=== PATIENT | female | born 2000 | race Caucasian/White ===

== ENCOUNTER 2025-04-10 08:00 | Inpatient (IN) ==
[2025-04-10] MEDS ORDERED: OXYTOCIN 30 UNITS/NSS 30 UNITS/500 ML BAG IV PRN (09:07)
[2025-04-10] MEDS ORDERED: LIDOCAINE 1% LOCAL 20 ML VIAL INFIL PRN (09:07)
[2025-04-10 09:57] LABS: Hematocrit (blood only) 31.9 % (37.0-47.0); Hemoglobin 10.8 g/dl (12.0-16.0); Mean Corpuscular Hemoglobin 26.2 pg (25.0-34.0); Mean Corpuscular Volume 77.4 fL (80.0-100.0); Platelet Count 218 K/uL (130-400); RDW Standard Deviation 37.2 fL (36.4-46.3); Red Blood Count 4.12 M/uL (4.20-5.40); White Blood Count 8.67 K/ul (4.8-10.8)
[2025-04-10] MEDS: LACTATED RINGER'S 1,000 ML IV PRN (10:04)
[2025-04-10] MEDS: OXYTOCIN 30 UNITS/NSS 30 UNITS/500 ML BAG IV PRN ×2 (10:05→20:05)
--- NOTE | 2025-04-10 10:32 | History & Physical Report ---
Date of Service April 10, 2025 Assessment & Plan (1) Encounter for supervision of normal in multigravida: Plan: IUP at 39+ weeks for IOL because of suspected cholestasis pitocin per L&D protocol epidural if requested anticipate vaginal Admission and Anticipated Discharge Date Admission Date: April 10, 2025 History of Present Illness Primary Care Provider: JACKI Stark Patient is a 24 yo female who presents for IOL at 39 3/7 weeks for suspected cholestasis. no ctns yet but did have bloody show prior to arriving in L&D this morning. baby has been active. testing has been reassuring. GBS is negative. blood type-O positive. Allergies Allergy/AdvReac Type Severity Reaction Status Date / Time amoxicillin Allergy rash Verified 04/10/25 08:31 Penicillins Allergy Rash Verified 04/10/25 08:31 shellfish derived Allergy Swelling Verified 04/10/25 08:33 of the Eye Sulfa (Sulfonamide Allergy Anaphylaxis Verified 04/10/25 08:31 Antibiotics) Home Medications Medication Instructions Recorded Confirmed Type docosahexaenoic acid 200 mg 1 mg PO DAILY 08/23/24 04/10/25 History capsule ( DHA) breast pump #1 ea 02/19/25 04/09/25 Rx sertraline 25 mg tablet 25 mg PO DAILY #30 tabs 03/19/25 04/10/25 Rx Patient History Medical History (Updated 04/10/25 @ 08:31 by Roxann Castillo, SUZANNE) (spontaneous vaginal delivery) 2020 Gestational hypertension first Cholestasis first Varicella vaccination Family history of breast cancer in first degree relative mother dx'd age 42, unknown genetic status Endometriosis Menorrhagia Nabothian cyst Breast mass, left Surgical History S/P wisdom tooth extraction S/P laparoscopy x2 S/P tonsillectomy Family History Mother Breast cancer Skin cancer Grandmother (Maternal) Uterine cancer Sister Spina bifida Denies family history of Ovarian cancer Prostate cancer Colorectal cancer Social History Smoking Status: Never smoker Do You Dip or Chew Tobacco: No; Hx Alcohol Use: No Hx Substance Use: No Preferred Language: Romanian Communication Ability: Effective 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 Required: No Beliefs That Will Affect Care: None marital status: marital status details: Rufus Gilmore (26) [phone] Current Living Situation: Spouse and Family Current Living Situation Comment: lives with spouse, son, cats-spouse changing litter current occupational status: employed current occupation: [employer] Other Information That Helps Us Care for You: No Feels Safe at Home: Yes Safety Concerns: Feels Safe At This Time caffeine: Yes Dental Care, Regularly: No Physical Activity Frequency: Does not Exercise Seatbelt Use: always Sunscreen Use: Yes Review of Systems All systems reviewed & are unremarkable except as noted in HPI & below Physical Exam Constitutional: WD/WN, vitals as above Psychiatric: A+Ox3, euthymic affect Genitourinary: OB Exam Abdomen: + vertex (by Bedside ultrasound) and + est imated weight (7-8 pounds); no irregular contractions Manual OB Exam: + cervical dilation 2 cm, + cervical effacement 50% and + station high OB Exam Monitor Tracing: + external FHT monitor used, + external uterine monitor used, + category I and + normal FHT variability Results & Data Vital Signs (Past 12 Hours) Vital Signs Temp Pulse Resp BP 04/10/25 10:00 96 H 119/71 04/10/25 08:12 106 H 125/81 04/10/25 08:06 98.1 F 18 Coding Level of Care Code 32738 INT INP/OBS CARE 1/40MIN Diagnoses Encounter for supervision of normal in multigravida Z34.80
--- NOTE | 2025-04-10 13:30 | Labor Progress Brief Note ---
Date of Service April 10, 2025 Subjective Tolerating contractions Assessment & Plan Admission and Anticipated Discharge Date Admission Date: April 10, 2025 Physical Exam Genitourinary: /-2 AROM Clear Anita Q2 FHT Cat 1 Results & Data Vital Signs (Past 12 Hours) Vital Signs Temp Pulse Resp BP 04/10/25 13:08 98.4 F 04/10/25 12:57 82 116/74 04/10/25 11:53 71 118/78 04/10/25 11:08 98.2 F 04/10/25 11:05 70 115/73 04/10/25 10:00 96 H 119/71 04/10/25 08:12 106 H 125/81 04/10/25 08:06 98.1 F 18 Coding Level of Care Code None
[2025-04-10] MEDS: BUPIVACAINE 0.25% PF 30 ML VIAL ONE (14:52)
[2025-04-10] MEDS: fentANYL 2 MCG/ML BUPIVacaine 0.125%-NSS 100ML BAG ONE (14:52)
[2025-04-10] MEDS: SODIUM CHLORIDE 0.9% PF INJ 10 ML VIAL ONE (14:52)
[2025-04-10] MEDS: LIDOCAINE 2%/EPINEPHRINE 1:200,000 20 ML PF ONE (14:52)
[2025-04-10] MEDS ORDERED: NALOXONE HCL 1 MG in SODIUM CHLORIDE 0.9% 1,000 ML IV PRN (14:58)
[2025-04-10] MEDS ORDERED: NALOXONE HCL 0.4 MG/1 ML VIAL/CARP IV PRN (14:58)
[2025-04-10] MEDS ORDERED: fentANYL 2 MCG/ML BUPIVacaine 0.125%-NSS 100ML BAG EPI PRN (14:58)
[2025-04-10] MEDS ORDERED: PROMETHAZINE 6.25 MG/50.25 ML BAG IV PRN (14:58)
[2025-04-10] MEDS ORDERED: BUPIVACAINE 0.25% PF 30 ML VIAL EPI PRN (14:58)
[2025-04-10] MEDS ORDERED: diphenhydrAMINE 50 MG/ML VIAL IV PRN (14:58)
[2025-04-10] MEDS ORDERED: LIDOCAINE 2% MPF LOCAL 5 ML VIAL EPI PRN (14:58)
[2025-04-10] MEDS ORDERED: SODIUM CHLORIDE 0.9% PF INJ 10 ML VIAL EPI PRN (14:58)
[2025-04-10] MEDS ORDERED: NALBUPHINE HCL INJ 10 MG/ML AMP IV PRN (14:58)
[2025-04-10] MEDS ORDERED: ROPIVACAINE 0.5% PF 5 MG/ML 20 ML VIAL EPI PRN (14:58)
--- NOTE | 2025-04-10 14:58 | Anesthesiology Consultation ---
Date of Service April 10, 2025 Assessment & Plan Chart Review Chart Review: Patient NOT seen in Pre Admission Testing and Acceptable Risk for Labor Epidural Consults Requested none ASA ASA2 Proposed Anesthesia Anesthesia Type: Labor Epidural Risk / Benefits Reviewed With: PT / POA / Parent / Guardian, Accepts Plan and Informed Consent Obtained History Height/Weight Height: 5 ft 6 in Weight: 114.759 kg Allergies Allergy/AdvReac Type Severity Reaction Status Date / Time amoxicillin Allergy rash Verified 04/10/25 08:31 Penicillins Allergy Rash Verified 04/10/25 08:31 shellfish derived Allergy Swelling Verified 04/10/25 08:33 of the Eye Sulfa (Sulfonamide Allergy Anaphylaxis Verified 04/10/25 08:31 Antibiotics) Medications Home Medications Medication Instructions Recorded Confirmed Last Taken docosahexaenoic acid 200 mg 1 mg PO DAILY 08/23/24 04/10/25 04/09/25 08:00 capsule ( DHA) breast pump #1 ea 02/19/25 04/09/25 Unknown sertraline 25 mg tablet 25 mg PO DAILY #30 tabs 03/19/25 04/10/25 Unknown Active Medications Generic Name Dose Route Start Last Admin Trade Name Freq PRN Reason Stop Dose Admin Lactated Ringer's 1,000 mls @ 125 mls/hr 04/10/25 09:07 04/10/25 14:15 Lr IV 04/12/25 09:06 999 mls/hr .Q8H PRN Infusion L&D Protocol Protocol Oxytocin 30 units in 500 mls @ 8 mls/hr 04/10/25 09:11 04/10/25 13:00 Pitocin 30 Units/Nss IV 04/12/25 09:10 0.48 units/hr .Q24H PRN 8 mls/hr Labor Induction/Augmentation Titration Protocol 0.48 UNITS/HR Past Medical History Medical History (Updated 04/10/25 @ 08:31 by Roxann Castillo RN) (spontaneous vaginal delivery) 2020 Gestational hypertension first Cholestasis first Varicella vaccination Family history of breast cancer in first degree relative mother dx'd age 42, unknown genetic status Endometriosis Menorrhagia Nabothian cyst Breast mass, left Exercise / Class Metabolic Activity II 4-5 Yardwork/Stairs/Walk up hill Past Family History Family History Mother Breast cancer Skin cancer Grandmother (Maternal) Uterine cancer Sister Spina bifida Denies family history of Ovarian cancer Prostate cancer Colorectal cancer Past Surgical History Surgical History S/P wisdom tooth extraction S/P laparoscopy x2 S/P tonsillectomy Past Anesthesia History No Hx of Anesthesia Complications and No Family Hx of Anesthesia Complications History of PONV No Hx of PONV and No Hx of Motion Sickness Social History Smoking Status: Never smoker Do You Dip or Chew Tobacco: No Hx Alcohol Use: No Hx Substance Use: No Physical Exam Vital Signs Last Vital Signs Temp 36.9 C 04/10/25 13:08 Pulse 101 H 04/10/25 14:56 Resp 18 04/10/25 08:06 BP 106/65 04/10/25 14:56 Pulse Ox 99 04/10/25 14:52 ENMT Mouth: no dentition abnormality Thyromental Distance: > or= 3.5 Finger Breadths Mallampati Class: II Neck normal visual inspection Respiratory normal respiratory effort Auscultation: lungs clear to auscultation bilaterally Cardiovascular Rate/Rhythm: regular rate and regular rhythm Psychiatric Orientation: alert Testing Laboratory Results 04/10/25 09:02 Blood Type O Positive 04/10/25 09:07 Antibody Screen NEGATIVE 04/10/25 09:07
[2025-04-10] MEDS: ONDANSETRON INJ 2 MG/ML 2 ML VIAL IV PRN (16:44)
[2025-04-10] MEDS: BUPIVACAINE 0.25% PF 30 ML VIAL EPI STA (18:31)
[2025-04-10] MEDS: LIDOCAINE 2%/EPINEPHRINE 1:200,000 20 ML PF EPI STA (18:31)
[2025-04-10] MEDS: SODIUM CHLORIDE 0.9% PF INJ 10 ML VIAL EPI STA (18:31)
--- NOTE | 2025-04-10 19:21 | Delivery Summary ---
Vaginal Delivery Summary Date of Service April 10, 2025 Vaginal Delivery Summary DIAGNOSES: 1. Jose intrauterine at 39w3d gestation. 2. Induction of Labor. 3. Group B Streptococcus Neg. PROCEDURE: Spontaneous vaginal delivery without laceration. SURGEON: Zenobia Champagne MD. PLASTER HELPER: None. ESTIMATED BLOOD LOSS: 101 mL. COMPLICATIONS: None. PLACENTA: Spontaneous and intact with a 3-vessel cord. DISPOSITION: Stable to labor and delivery. DESCRIPTION: The patient pushed well and brought the head to in DOA position. The infant's head was allowed to deliver with contraction force and no further active pushing, with the perineum protected during this time. There was a double nuchal cord. The right shoulder was anterior, and the L hand presented compound alongside R cheek. The shoulders and body delivered without any difficulty, and the was placed on the maternal abdomen. It was vigorous and moving all extremities, and making respiratory efforts. The cord was doubly clamped by the MD and then cut by the FOB. The placenta delivered spontaneously and was noted to be intact and with a 3VC. The cervix, vagina and perineum were examined and were found to be without defect requiring repair. The fundus was firm and lochia minimal immediately after delivery. [facility] Vaginal Delivery Charge Vaginal Delivery Codes: 82973 global code for the antepartum, delivery, and post-
[2025-04-10] MEDS ORDERED: BENZOCAINE 20% SPRY 85 APPLN/85 GM CAN EXT PRN (19:28)
[2025-04-10] MEDS ORDERED: HYDROCORTISONE ACETATE 25 MG SUPP PR PRN (19:28)
--- NOTE | 2025-04-10 19:44 | Anesthesia Procedure Note ---
Date of Service April 10, 2025 Anesthesia Post Epidural Note Vital Signs Vital Signs: Temp Pulse Resp BP Pulse Ox O2 Del Method 37.3 C 101 H 18 123/50 L 99 Room Air 04/10/25 18:59 04/10/25 19:39 04/10/25 18:59 04/10/25 19:39 04/10/25 19:15 04/10/25 18:59 Notes Mental Status: alert / awake / arousable Nausea / Vomiting: adequately controlled Pain: adequately controlled Airway Patency, RR, SpO2: stable & adequate BP & HR: stable & adequate Hydration State: stable & adequate Neuraxial Anesthesia: was administered and sensory block is resolving Anesthetic Complications: no major complications apparent and Pt Satisfied with anesthetic care Epidural: Removed without complications and With tip intact
[2025-04-10] MEDS: DOCUSATE SODIUM 100 MG CAP PO SCH (20:10)
[2025-04-10] MEDS: DIPHTHER/TETAN/PERTUS Vaccine (Tdap, Adol/Adult) 0.5mL IM ONE (20:17)
[2025-04-11] MEDS: IBUPROFEN 600 MG TAB PO PRN (02:22)
--- NOTE | 2025-04-11 06:32 | Obstetrical Progress Note ---
Date of Service <Melani Upton MD - Last Filed: 04/11/25 07:51> April 11, 2025 Assessment & Plan <Melani Upton MD - Last Filed: 04/11/25 07:51> (1) care following vaginal delivery: Plan -Continue stable and routine care. Breast feeding. Rhesus Positive. Rubella Immune. Monitor. <Zenobia Champagne MD - Last Filed: 04/11/25 08:07> (1) care following vaginal delivery: Subjective <Melani Upton MD - Last Filed: 04/11/25 07:51> Ambulation: ambulating normally Voiding: no voiding problems Passing Gas:: Yes Diet Tolerance:: regular diet Lochia:: Small Feeding Type:: breast feeding Current Pain Level(1-10): 2 PPD 1. Review of Systems All systems reviewed & are unremarkable except as noted in HPI & below i. Denies fever, chills, sweats ii. Denies SOB, difficulty breathing, chest pain, palpitations, chest pressure iii. Denies breast pain. iv. Denies Dysuria v. Denies headache or changes in vision. Physical Exam <Melani Upton MD - Last Filed: 04/11/25 07:51> Constitutional WD/WN, vitals as above Respiratory normal respiratory effort, lungs clear to auscultation Cardiovascular RRR, no murmur, no edema Gastrointestinal (Abdomen) normal bowel sounds, soft, nontender, no hepatosplenomegaly On palpation of abdomen, fundus is at the level of the umbilicus. uterus is firm and has begun involution, at approximately 1cm/day. Skin no rashes, warm and dry Results & Data <Melani Upton MD - Last Filed: 04/11/25 07:51> Vital Signs (Past 12 Hours) Vital Signs Temp Pulse Pulse Resp BP BP Pulse Ox 04/11/25 03:45 36.8 C 77 20 128/80 97 04/11/25 01:15 36.8 C 77 20 125/83 96 04/10/25 22:45 36.9 C 84 22 110/72 97 04/10/25 21:20 18 04/10/25 21:19 99 H 110/58 L 04/10/25 21:05 97 H 93/50 L 04/10/25 20:50 18 04/10/25 20:50 99 H 103/52 L 04/10/25 20:36 92 H 107/56 L 04/10/25 20:21 107 H 106/53 L 04/10/25 20:20 18 04/10/25 20:06 83 102/56 L 04/10/25 20:05 18 04/10/25 19:51 86 110/53 L 04/10/25 19:50 18 04/10/25 19:39 101 H 123/50 L 04/10/25 19:35 18 04/10/25 19:20 18 04/10/25 19:20 85 117/58 L 04/10/25 19:15 99 04/10/25 19:15 97 H 04/10/25 19:15 98 H 127/58 L 04/10/25 19:10 79 99 04/10/25 19:05 87 99 04/10/25 19:01 81 119/68 04/10/25 19:00 82 98 04/10/25 18:59 37.3 C 18 04/10/25 18:59 04/10/25 18:55 37.3 C 87 18 98 04/10/25 18:50 72 96 04/10/25 18:46 68 111/58 L 04/10/25 18:45 74 97 04/10/25 18:40 73 97 04/10/25 18:35 76 96 O2 Del Method 04/11/25 03:45 Room Air 04/11/25 01:15 Room Air 04/10/25 22:45 Room Air 04/10/25 21:20 04/10/25 21:19 04/10/25 21:05 04/10/25 20:50 04/10/25 20:50 04/10/25 20:36 04/10/25 20:21 04/10/25 20:20 04/10/25 20:06 04/10/25 20:05 04/10/25 19:51 04/10/25 19:50 04/10/25 19:39 04/10/25 19:35 04/10/25 19:20 04/10/25 19:20 04/10/25 19:15 04/10/25 19:15 04/10/25 19:15 04/10/25 19:10 04/10/25 19:05 04/10/25 19:01 04/10/25 19:00 04/10/25 18:59 04/10/25 18:59 Room Air 04/10/25 18:55 04/10/25 18:50 04/10/25 18:46 04/10/25 18:45 04/10/25 18:40 04/10/25 18:35 Supervising Physician <Zenobia Champagne MD - Last Filed: 04/11/25 08:07> Co-Signing Physician Notes Resident Physician Supervision Note: I interviewed and examined the patient. Discussed with Dr. Upton and agree with findings and plan as documented in the note. Any exceptions or clarifications are listed here: Patient seen and examined personally this morning, recovering well, passing gas / voiding / иван PO, pain well controlled. Anticipate D/C tomorrow on PPD#2. Documented By: Zenobia Champagne MD, FACOG
[2025-04-11] MEDS: PRENATAL VITAMIN 1 TAB PO SCH (07:44)
[2025-04-11] MEDS: SERTRALINE HCL 50 MG TABLET PO SCH (09:05)
[2025-04-11 10:15] LABS: Hematocrit (blood only) 34.6 % (37.0-47.0); Hemoglobin 10.8 g/dl (12.0-16.0); Mean Corpuscular Hemoglobin 24.9 pg (25.0-34.0); Mean Corpuscular Volume 79.9 fL (80.0-100.0); Platelet Count 204 K/uL (130-400); RDW Standard Deviation 38.5 fL (36.4-46.3); Red Blood Count 4.33 M/uL (4.20-5.40); White Blood Count 10.69 K/ul (4.8-10.8)
[2025-04-11] MEDS: ACETAMINOPHEN 325 MG TAB PO PRN (19:42)
--- NOTE | 2025-04-12 07:00 | Obstetrical Progress Note ---
Date of Service April 12, 2025 Assessment & Plan (1) care following vaginal delivery: 24 yo PP2 from , doing well -Meeting all pp milestones -O+/rubella immune/ -f/u 6 weeks for appt dc home today Subjective Ambulation: ambulating normally Voiding: no voiding problems Passing Gas:: Yes Diet Tolerance:: regular diet Lochia:: Small Feeding Type:: breast feeding Pain well managed with medication Review of Systems Denies fevers, chills, n/v, EASON, CP, SOB Physical Exam Constitutional WD/WN, vitals as above no acute distress Respiratory normal respiratory effort, lungs clear to auscultation Cardiovascular RRR, no murmur, no edema Gastrointestinal (Abdomen) Percussion/Palpation: abdomen soft; abdomen nontender fundus firm at umbilicus and NT Musculoskeletal BLE symmetric, nonerythematous, nontender Results & Data Vital Signs (Past 12 Hours) Vital Signs Temp Pulse Resp BP Pulse Ox O2 Del Method 04/11/25 23:15 98.8 F 80 18 127/85 97 Room Air 04/11/25 19:35 Room Air
[2025-04-12 07:30] LABS: Hematocrit (blood only) 31.9 % (37.0-47.0); Hemoglobin 10.1 g/dl (12.0-16.0)
[2025-04-12 10:21] VITALS: BP 134/83; PULSE 74; RESP 16; TEMP 98.4; O2SAT 98
== END 2025-04-12 12:50 | disposition home or self-care (01) | DRG 807 ==
LOC: 4S1 08:00 → 4E2 21:48
DX: O69.81X0 Labor and delivery complicated by cord around neck, without compression, not applicable or unspecified; Z3A.39 39 weeks gestation of pregnancy; Z37.0 Single live birth